=== PATIENT | male | born 1995 | race Two or more races ===

== ENCOUNTER 2024-08-14 07:02 | Outpatient (CLI) | payer OTHER, SELFPAY ==
--- NOTE | ~2024-08-14 | US_ITS ---
US scrotum doppler INDICATION: Right groin pain TECHNIQUE: Testicular sonogram utilizing grayscale and color Doppler FINDINGS: The testes are normal in size and appearance. No focal lesions are seen. The right testes measures 4.7 x 1.5 x 4 cm centimeters, and the left testis measures 4.1 x 1.6 x 3.8 cm cm. There is n ormal vascular flow to both testes. The right and left epididymides appear normal. There is no varicocele or hydrocele. IMPRESSION: 1. NORMAL TESTICULAR ULTRASOUND. Reviewed, dictated and finalized at location A.
--- OUTSIDE RECORDS SUMMARY | 2024-08-14 07:09 | XMS_ITS | Data Portability ---
Author Organization [place] - [facility] , [facility] Address [address] [place] [address] Assessment Encounter Date Assessment Date Assessment LastModified by Organization Details LastModified Time 04/07/2024 04/07/2024 History & Exam C /w viral etiology Zofran given med use/se/ci discussed Clear liquid diet and gradually return regular diet as tolerated. Add Gatorade/Pedialyte to regimen Avoid: -[place] foods -Caffeinated beverages -Juices -Dairy products for next 48 hours Red flags/ED Precautions advised [email or web address] Not available 04/07/2024 13:41:50 07/01/2024 07/01/2024 Acute gastroenteritis - indicated by the patient's report of experiencing diarrhea, abdominal discomfort, and feeling warm after consuming regular taco meat. - Advised staying hydrated with water, Gatorade, or vitamin water to prevent dehydration from diarrhea. - Provided a note for work absence on the , allowing return on the . - Encouraged to take a rest day if needed to recover from the presumed food poisoning. [email or web address] Not available 07/01/2024 18:16:41 Plan of Treatment Reminders Order Date Submit Date Provider Last Modified By Organization Details Last Modified Time Details Appointments None recorded. Lab None recorded. Referral None recorded. Procedures None recorded. Surgeries None recorded. Imaging None recorded. Medication Orders albuterol sulfate HFA 90 mcg/actuati on aerosol inhaler 2024 025 [facility] #[id number], [address] [place], [place], [id number], 18:08:33 ondansetron 4 mg disintegrat ing tablet 2024 025 [facility] #[id number], [address], [place], [id number], 16:58:50 Patient TargetsNo targets recorded. Patient Instructions Encounter Date Encounter Id Patient Instructions Last Modified By Organization Details Last Modified Time 04/07/2024 [id number] gastroenteritis: care instructions [email or web address] Not available 04/07/2024 13:40:23 Take Zofran as prescribed Clear liquid diet and gradually return regular diet as tolerated. Add Gatorade/Pedialyte to regimen Avoid: -[place] foods -Caffeinated beverages -Juices - To much of anything at one time -Dairy products for next 48 hours Red flags/ED Precautions advised Not available 04/07/2024 13:41:41 04/08/2024 [id number] diarrhea: care instructions [email or web address] Not available 04/08/2024 16:25:33 05/06/2024 [id number] bronchitis: care instructions [email or web address] Not available 05/06/2024 16:59:00 07/01/2024 [id number] food poisoning: care instructions [email or web address] Not available 07/01/2024 18:15:45 Summary of Today 's Visit: Today, you reached out to ensure that you complied with your work requirements to see a doctor while feeling unwell. You experienced an upset stomach and diarrhea after eating dinner last night. The symptoms initially made you feel hot and uncomfortable throughout the night but subsided by midday today. Managing Upset Stomach and Diarrhea: Since your symptoms have improved, it's crucial to stay hydrated to prevent dehydration. Drink plenty of fluids like water, Gatorade, or vitamin water. Avoid foods that might aggravate your stomach, and stick with bland foods until your stomach feels settled. Returning to Work: You indicated that you wish to return to work tomorrow. I have provided you with a doctor's note confirming your visit today, which will be available in your patient portal. You can print or email this note for your employer as needed. Testing Amoxicillin Allergy: We discussed your childhood allergy to amoxicillin, which you may have outgrown. If you ever need an antibiotic again, you might consider testing your sensitivity to amoxicillin under medical supervision. If you decide to try it, and experience a rash, stop taking it immediately, take a Benadryl, and notify us to explore alternative treatment options. Follow-Up Actions: - Stay hydrated and rest as needed. - Return to work on the if you feel ready. - Consider monitoring any future need for antibiotics regarding amoxicillin. - Access your doctor s note in your patient portal for your work documentation. Should your symptoms return or worsen, please get in touch with us promptly. Take care and feel better soon! [email or web address] Not available 07/01/2024 18:16:30 Reason for Referral None Reported. Problems Name Problem SNOMED Code Status Onset Date Resolution Date Notes Provider Name and Address Organization Details Recorded Time Anxiety 31277267 Active 025 MIO Dewitt 1 [facility] [address], [address], [place] [facility] 13:30:50 Problem Notes None recorded. Medical Equipment None Reported. Allergies Allergen ID Allergen Name Allergen Category Reaction Reaction Severity Criticality Documentation Date Start Date Code Code System Note Provider Name and Address Organization Details Recorded Time 920670 amoxicill in medicatio n hives moderate unabletoasse ss 04/07/2024 723 RxNorm MIO Swann 1 [facility] [address], [place], [address], [place] [facility] 18:06:49 Medications Name Sig Start Date Stop Date Status Note LastModified by Organization Details LastModified Time albuterol sulfate HFA 90 mcg/actuati on aerosol inhaler Inhale 2 puffs every 4 hours by inhalatio n route as needed for 7 days, for cough/christi rtness of breath. 07/01 completed [NOT TAKIN G] Not Available Not Available Not Available Zoloft 25 mg tablet 07/01 completed [NOT TAKIN G] Not Available Not Available Not Available ondansetron 4 mg disintegrat ing tablet Place 1 tablet every 8 hours by transling ual route as needed, for nausea or vomiting. 05/06 completed [NOT TAKIN G] Not Available Not Available Not Available Vitals Date Recorded Respiratory rate Provider Name a nd Address Organization Details Last Updated DateTime 04/07/2024 20 /min MIO Dewitt 1 [facility] [address], [place], [address], [place] [facility] 04/07/2024 13:42:32 Date Recorded Body height Body mass index (BMI) Body weight Provider Name and Address Organization Details Last Updated DateTime 07/01/2024 193.04 cm 26.8 kg/m2 75158.32 g Layla MIO Vallejo 1 [facility] [address], [place], [address], [place] [facility] 07/01/2024 18:09:47 Social History Question Answer Notes LastModified by [employer] Details LastModified Time Tobacco Smoking Status Never Smoker MIO Dewitt 1 [facility] [address], [place], [address], [place] [facility] 04/07/2024 13:32:13 Which Illicit Or Recreational Drugs Have You Used? Mary [email or web address] Information not available 04/07/2024 Sex: Unknown Functional Status Question Answer Note LastModified by [employer] Details LastModified Time Do you use any illicit or recreational drugs? Yes [email or web address] Information not available 04/07/2024 What is your level of alcohol consumption? None [email or web address] Information not available 04/07/2024 Mental Status None recorded. Family History Nothing Reported. Medical History No medical history recorded. Past Encounters Encounter ID Performer Location Encounter Start Date Encounter Closed Date Diagnosis/Indication Diagnosis SNOMED-CT Code Diagnosis ICD10 Code Diagnosis Note [id number] MIO Dewitt [facility] [place] [address] 04/07/2024 13:26:13 04/07/2024 19:38:06 Viral syndrome 246640125 B34.9 [id number] Monika Mahmood MD [facility] [place] [address] 04/08/2024 16:09:02 04/08/2024 22:15:15 Diarrhea 05214021 R19.7 Gastroente ritis.Symp toms are likely viral due to time course.Con tinue symptomati c preventati ve treament with Pepto Bismol, PRN.Encour age adequate hydration (8-10 cups of water), bland diet, multiple small meals, electrolyt e replenishm ent (liquid IV, Gatorade Zero, Pedialyte) .Follow up as needed with fever, continued or worsening symptoms. [id number] MIO Fairchild [facility] [address] [place] [address] 05/06/2024 16:50:45 05/06/2024 17:01:25 Acute bronchitis 88960155 J20.9 [id number] [facility] [address] [place] [address] 07/01/2024 18:03:55 07/04/2024 21:39:36 Food poisoning 76994933 A05.9 No Rx meds sent to pharmacy today. Health Concerns Section Related Observation LastModified by Organization Detai ls LastModified Time None Recorded Concern Status LastModified by Organization Details LastModified Time None Recorded Advance Directives Directive None Recorded Payers Insurance Date Sequence Insurance Name Policy Number Policy Reina Covered Member ID Reina Member ID Guarantor Name 04/07/2024 1 *SELF PAY* Elizabeth josue Carvajal 07/01/2024 2 [facility] [id number] Zach Carvajal [id number] Zach Carvajal 07/07/2024 1 [facility] [id number] Zach Carvajal [id number] Zach Carvajal 04/07/2024 3 *SELF PAY* [id number] Zach Carvajal [id number] Zach Carvajal 07/01/2024 [employer] [id number] Zach Carvajal [id number] Zach Carvajal Notes Date Note Type Note Provider Name and Address Organization Details Recorded Time 04/07/2024 text/html Continuity visit , patient authentication completed during earlier visit. Limitations of telemedicine evaluations reviewed, all questions answered, and verbal consent obtained to treat via telemedicine.Eugenio marvin attests that the clinician is physically located in the following state at the time of the visit: [place] 28 YO male present with CC nbnb vomiting and chills that started today at 4 am. AW: feeling fatigue and nausea. No chills, slade, dizziness, cp, sob, abd pain, d or myalgia. He reports 2 episode. He is tolerating po fluids at this time. overall he is feeling much better. Need a return to work note. MIO Dewitt 1 [facility] [address], [address], [facility] 04/07/2024 13:45:08 04/08/2024 text/html Call connected, patient greeted. Patient name, , telephone number, and location verified verbally with the patient. Telemedicine limitations reviewed, answered all questions the patient had about the telehealth interaction, and verbal consent obtained to treat. Clinician attests they are physically located in the following state at the time of visit: [place] Diarrhea.Patient has had GI upset that started 2 days ago.Patient had a DoD visit yesterday due to GI upset and vomiting. Vomiting started 4 am with 1-2 episodes, but continued fatigue throughout the day. Last night patient started having diarrhea about 8pm. Last episode was about 5am. Described as watery diarrhea, but denies any blood in the stool. Patient is requesting a note for work to be off due to fatigue. Hydration: water 3 cups of water/day. Monika Mahmood MD 1 [facility] [address], [place], [address], [facility] 04/08/2024 16:25:36 05/06/2024 text/html Call connected, patient greeted. Patient name, , telephone number and pharmacy, and location verified verbally with the patient. Telemedicine limitations reviewed, answered all questions the patient had about the telehealth interaction, and verbal consent obtained to treat. Clinician attests they are physically located in the following state at the time of visit: [place]. The patient also consents to the use of AI scribe technology. CC: Work note due to cold symptoms HPI: The patient presents for a checkup related to cold symptoms experienced over the past few days, leading to absence from work. Symptoms began on either Sunday or Sunday with sneezing and nasal congestion, progressively migrating to the chest. The patient identifies this as a recurring seasonal condition. They have a history of asthma since childhood, which exacerbates the cough, especially when lying down or in the mornings. While current symptoms are improving, the patient reports that the cough intensifies later in the night and for about two to three hours in the morning. They deny significant wheezing, noting only occasional mild wheezing and chest tightness during persistent coughing or physical activity. No additional symptoms relevant to the chief complaint are denied. The patient did not report recent COVID-19 exposure or symptoms. They have not taken any specific treatments or medications for their current symptoms, nor for asthma management. There are no denials of additional symptoms relevant to the chief complaint. MIO Fairchild 1 [facility] [address], [place], [address], [facility] 05/06/2024 16:59:03 07/01/2024 text/html Patient name , location, and phone number confirmed. Limitations of telemedicine evaluations reviewed, all questions answered, and verbal consent obtained to treat via secure video telemedicine interaction.Isrrael alcazar attests that the clinician is physically located in the following [place] at the time of the visit: [place].Patient consents to the use of [employer] scribe technology. CC: Diarrhea and upset stomach HPI: The patient presents following an episode of diarrhea and an upset stomach experienced the previous night. Symptoms started around 3:30 to 4:00 AM, after consuming a meal of regular taco meat for dinner, and included stomach pain and diarrhea. The diarrhea recurred approximately every 30 minutes to an hour and persisted until the morning. The patient reports feeling hot similar to prior illnesses during childhood but denies experiencing a fever during this episode. There was no abdominal pain reported at the time of consultation. The symptoms started subsiding in mid-morning to early afternoon, and the patient has felt fine since then. The patient considered the possibility that the stomach upset might have been due to eating something disagreeable. The patient's primary reason for the visit was to obtain a note for work to confirm seeing a healthcare provider. MIO Swann 1 [facility] [address], [place], [address], [facility] [employer] 07/04/2024 20:26:27
== END 2024-08-14 07:03 | disposition home or self-care (01) ==
PROVIDERS: PCP Family Medicine
DX: R10.31 Right lower quadrant pain (principal); R10.32 Left lower quadrant pain
CPT/HCPCS: 76870; 93976